=== PATIENT | female | born 1995 | race Hispanic/Latino ===

== ENCOUNTER 2017-10-08 12:22 | Emergency (ER) | payer OTHER ==
[2017-10-08 12:50] VITALS: BP 123/80; PULSE 85; RESP 18; TEMP 98.5; O2SAT 99
[2017-10-08] MEDS ORDERED: LIDOCAINE 2% 10ML 20 MG/ML VIAL IJ STA (13:08)
[2017-10-08] MEDS ORDERED: Lidocaine PF 2% (5 ml) Inj (For Cardiac Arrhy) ONE ×2 (13:13→13:15)
[2017-10-08] MEDS ORDERED: Lidocaine 2% MPF (5 ml) Inj INJ STA (13:14)
--- NOTE | 2017-10-08 13:15 | ED PDOC ---
Upper Extremity Pain/Injury Time Seen by Provider: 10/08/17 12:51 Chief Complaint (Nursing): Finger,Hand,&Wrist Chief Complaint (Provider): Left Hand Injury History Per: Patient History/Exam Limitations: no limitations Onset/Duration Of Symptoms: Hrs (x2) Current Symptoms Are (Timing): Still Present Additional Complaint(s): 21 year old right hand dominant female presents to the ED for evaluation of a left hand injury. She notes two hours ago she dove into a pool and hit her left hand on the bottom of the pool, causing pain and swelling to the fifth and third digits. Denies any other injury at this time. PMD: in [place] Past Medical History Reviewed: Historical Data, Nursing Documentation, Vital Signs Vital Signs: Last Vital Signs Temp 98.5 F 10/08/17 12:47 Pulse 85 10/08/17 12:47 Resp 18 10/08/17 12:47 BP 123/80 10/08/17 12:47 Pulse Ox 99 10/08/17 12:47 - Medical History PMH: No Chronic Diseases - Surgical History Surgical History: Tonsillectomy - Family History Family History: States: No Known Family Hx - Living Arrangements Living Arrangements: With Friends/Others - Social History Current smoker - smoking cessation education provided: No Alcohol: None Drugs: Denies - Home Medications Home Medications: Ambulatory Orders Medication Instructions Recorded Ibuprofen [Motrin Tab] 800 mg PO Q8 PRN #20 tab 10/08/17 - Allergies Allergies/Adverse Reactions: Allergies Allergy/AdvReac Type Severity Reaction Status Date / Time No Known Allergies Allergy Verified 10/08/17 12:47 Review of Systems ROS Statement: Except As Marked, All Systems Reviewed And Found Negative Musculoskeletal: Positive for: Other (left fifth and third digit pain and swelling) Physical Exam - Reviewed Nursing Documentation Reviewed: Yes Vital Signs Reviewed: Yes - Physical Exam Appears: Positive for: No Acute Distress Head Exam: Positive for: ATRAUMATIC, NORMAL INSPECTION, NORMOCEPHALIC Skin: Positive for: Normal Color. Negative for: Rash Eye Exam: Positive for: Normal appearance Extremity: Positive for: Other (tenderness and obvious deformity to left 5th digit, swelling and tenderness also noted to left 3rd digit with full rom, remaining digits left hand wnl, full rom left wrist, no snuff box tenderness) Neurologic/Psych: Positive for: Alert, Oriented - ECG O2 Sat by Pulse Oximetry: 99 (RA) Pulse Ox Interpretation: Normal - Other Rad Left hand x-ray X-Ray: Interpreted by Me, Viewed By Me X-Ray Interpretation: dislocation of PIP of 5th digit Post reduction film left hand X-Ray: Interpreted by Me, Viewed By Me X-Ray Interpretation: normal alignment left 5th digit with splint in place Medical Decision Making Medical Decision Making: Time: 1305 Impression: 21 year old right hand dominant female with left hand injury Initial Plan: --Lidocaine 2% 10mg IJ --Left hand XR Procedure Note: Left fifth digit was anesthetized with digital block using 7 mL of lidocaine 2% without epinephrine. Good anesthesia was achieved. Using traction/countertraction method, PIP of left 5th digit was reduced back into placed. Splint applied and post reduction film demonstrates normal alignment. Procedure was tolerated well by patient with no complications. Patient given rx motrin and was referred to hand specialist allergist/pediatric pulmonologist. ~ Scribe Attestation: Documented by Zina Wilde, acting as a scribe for Samia Shaw PA-C. Provider Scribe Attestation: All medical record entries made by the Scribe were at my direction and personally dictated by me. I have reviewed the chart and agree that the record accurately reflects my personal performance of the history, physical exam, medical decision making, and the department course for this patient. I have also personally directed, reviewed, and agree with the discharge instructions and disposition. Disposition - Clinical Impression Clinical Impression: Finger dislocation - Patient ED Disposition Is Patient to be Admitted: No Counseled Patient/Family Regarding: Studies Performed, Diagnosis, Need For Followup, Rx Given - Disposition Referrals: Zaira Berry MD [Staff Provider] - Disposition: Routine/Home Disposition Time: 13:51 Condition: IMPROVED Additional Instructions: Take rx meds as directed. Ice, rest and elevate affected area. Keep splint on as often as possible. Follow up in 1-2 days with hand specialist. Prescriptions: Ibuprofen [Motrin Tab] 800 mg PO Q8 PRN #20 tab PRN Reason: Pain, Moderate (4-7) Instructions: Finger Dislocation (DC) Forms: [facility] ([place])
[2017-10-08] MEDS: Lidocaine PF 2% (5 ml) Inj (For Cardiac Arrhy) IJ STA (13:19)
--- NOTE | 2017-10-08 15:33 | RAD ---
PROCEDURE: Left Hand Radiographs. HISTORY: post reduction COMPARISON: 10/08/2017 at 12:58 p.m. FINDINGS: BONES: No fracture identified, post reduction. Bony detail is obscured by overlying splint, however. JOINTS: Status post successful closed reduction of 5th PIP dislocation. SOFT TISSUES: Normal. OTHER FINDINGS: None. IMPRESSION: Successful closed reduction 5th PIP posterior dislocation.
--- NOTE | 2017-10-08 15:35 | RAD ---
PROCEDURE: Left Hand Radiographs. HISTORY: trauma COMPARISON: None. FINDINGS: BONES: No fracture. JOINTS: Dorsal dislocation at 5th PIP. Remaining joint spaces and articular surfaces are preserved. SOFT TISSUES: Normal. OTHER FINDINGS: None. IMPRESSION: Dorsal dislocation at 5th PIP. No evidence of fracture.
== END 2017-10-08 13:59 | disposition home or self-care (01) ==
LOC: H.ER 12:22
DX: S63.257A Unspecified dislocation of left little finger, initial encounter (principal); W16.522A Jumping or diving into swimming pool striking bottom causing other injury, initial encounter; Y93.11 Activity, swimming